=== PATIENT | female | born 1985 | race African-American/Black ===

== ENCOUNTER 2016-11-15 22:45 | Emergency (ER) | payer MEDICAID ==
[~2016-11-15] VITALS: Ht 162.6 cm; Wt 158.8 kg
[2016-11-15 23:08] VITALS: BP 124/73
[2016-11-16] MEDS ORDERED: cefTRIAXone SOD 1,000 MG VL IM ONE (03:15)
== END 2016-11-16 03:21 | disposition home or self-care (01) ==
LOC: ER 22:57
DX: L03.113 Cellulitis of right upper limb (principal); S50.01XA Contusion of right elbow, initial encounter; X58.XXXA Exposure to other specified factors, initial encounter; Y93.89 Activity, other specified; Y99.8 Other external cause status; Y92.89 Other specified places as the place of occurrence of the external cause
CPT/HCPCS: 36415; 73080; 84702

== ENCOUNTER 2016-12-12 00:04 | Emergency (ER) | payer MEDICAID ==
[~2016-12-12] VITALS: Ht 162.6 cm; Wt 181.4 kg
[2016-12-12 07:04] LABS: Basophils # (auto) 0.1 uL; Basophils % (auto) 0.5 % (0.0-2.0); Eosinophils # (auto) 0 uL; Eosinophils % (auto) 0.1 % (0.0-7.0); Hematocrit 48.1 % (36.0-46.0); Hemoglobin 16.2 g/dL (12.2-16.2); Lymphocytes % (auto) 8.9 % (10.0-50.0); Mean Corpuscular Hemoglobin 29.1 pg (28.0-32.0); Mean Corpuscular Hgb Conc. 33.6 g/dL (32.0-36.0); Mean Corpuscular Volume 86.6 fL (80.0-100.0); Monocytes # (auto) 0.6 uL; Monocytes % (auto) 5.1 % (0.0-12.0); Neutrophils # (auto) 10.1 uL; Neutrophils % (auto) 85.4 % (37.0-80.0); Platelet Count (auto) 224 10^3/uL (140-450); Red Cell Distribution Width 13.1 % (11.6-16.0); White Blood Cell 11.8 10^3/uL (4.4-10.8)
[2016-12-12 07:24] LABS: Albumin 3.9 g/dL (3.4-5.0); BUN/Creatinine Ratio 13.5; Calcium 8.9 mg/dL (8.5-10.1); Potassium 3.7 mmol/L (3.5-5.1)
[2016-12-12 07:26] LABS: Bilirubin, Total 1.3 mg/dL (0.2-1.0); Total Protein 8.5 g/dL (6.4-8.2)
[2016-12-12] MEDS ORDERED: SODIUM CHLORIDE 0.9% 1,000 ML IVB ONE (08:37)
[2016-12-12] MEDS ORDERED: PROMETHAZINE HCL 25 MG/ML 1ML IV ONE (08:45)
[2016-12-12 11:52] LABS: Urine Bilirubin Negative (Negative); Urine Blood Negative /uL (Negative); Urine Color Yellow (Yellow); Urine Glucose Normal (Normal); Urine Ketone 1+ (Negative); Urine Mucus FEW (None Seen); Urine Nitrite Negative (Negative); Urine RBC 9 /hpf (0 - 4); Urine Squamous Epithelial Cell FEW /hpf (<5); Urine Urobilinogen Normal (Negative); Urine pH 6.5 (5.0-8.0)
[2016-12-12 13:04] VITALS: BP 118/74
== END 2016-12-12 13:05 | disposition home or self-care (01) ==
LOC: ER 00:12
DX: K52.9 Noninfective gastroenteritis and colitis, unspecified (principal); E66.01 Morbid (severe) obesity due to excess calories; Z68.44 Body mass index [BMI] 60.0-69.9, adult
CPT/HCPCS: 36415; 76856; 80053; 81001; 84702; 85025; 96361; 96374; 99285; J2550; J7030

== ENCOUNTER 2017-06-08 09:30 | Emergency (ER) | payer MEDICAID ==
[~2017-06-08] VITALS: Ht 162.6 cm; Wt 162.8 kg
[2017-06-08 10:26] VITALS: BP 130/94
== END 2017-06-08 10:53 | disposition home or self-care (01) ==
LOC: ER 09:30
DX: S00.83XA Contusion of other part of head, initial encounter (principal); Y08.89XA Assault by other specified means, initial encounter; Y93.01 Activity, walking, marching and hiking; Y99.8 Other external cause status; Y92.89 Other specified places as the place of occurrence of the external cause

== ENCOUNTER 2017-09-25 11:30 | Emergency (ER) | payer MEDICAID ==
[~2017-09-25] VITALS: Ht 162.6 cm; Wt 158.8 kg
[2017-09-25 12:34] VITALS: BP 122/86
== END 2017-09-25 12:50 | disposition home or self-care (01) ==
LOC: ER 11:30
DX: N76.0 Acute vaginitis (principal)

== ENCOUNTER 2017-11-16 19:03 | Emergency (ER) | payer MEDICAID ==
[~2017-11-16] VITALS: Ht 152.4 cm; Wt 158.8 kg
[2017-11-16 22:08] VITALS: BP 94/43
[2017-11-16] MEDS ORDERED: ACETAMINOPHEN/CODEINE#3 (300/30mg) TAB PO ONE (22:45)
== END 2017-11-16 23:31 | disposition home or self-care (01) ==
LOC: ER 19:03
DX: J06.9 Acute upper respiratory infection, unspecified (principal); H66.91 Otitis media, unspecified, right ear

== ENCOUNTER 2024-07-19 11:05 | Emergency (ER) | payer MEDICAID ==
[~2024-07-19] VITALS: Ht 162.6 cm; Wt 164.9 kg
[2024-07-19 11:48] VITALS: BP 142/89; PULSE 79; RESP 16; TEMP 98.9; O2SAT 97
[2024-07-19] MEDS ORDERED: PRED20TA2 PO (12:48)
[2024-07-19] MEDS ORDERED: AUG875T PO (12:48)
[2024-07-19] MEDS ORDERED: LIDO2SOL26 MT (12:48)
== END 2024-07-19 13:03 | disposition home or self-care (01) ==
LOC: ER 11:09
DX: H66.91 Otitis media, unspecified, right ear (principal); J02.9 Acute pharyngitis, unspecified; Z79.899 Other long term (current) drug therapy